=== PATIENT | male | born 1955 | race Caucasian/White ===

== ENCOUNTER 2023-07-04 19:48 | Inpatient (IN) | payer OTHER ==
[~2023-07-04] VITALS: Ht 170.2 cm; Wt 72.6 kg
[2023-07-04 20:04] VITALS: BP 117/76; PULSE 67; RESP 16; TEMP 97.8; O2SAT 99
[2023-07-04] MEDS: MORPHINE SULFATE 4 MG/ML SYR IM ONE (20:53)
[2023-07-04] MEDS: ONDANSETRON 4 MG ODT PO ONE (20:55)
[2023-07-04 21:57] LABS: BASOPHILS # (AUTO) 0.1 K/uL (0.00-0.22); BASOPHILS % (AUTO) 0.7 % (0.0-2.0); EOSINOPHILS # (AUTO) 0.1 K/uL (0-0.4); EOSINOPHILS % (AUTO) 1.2 % (0.0-4.0); HEMATOCRIT 33.8 % (36-52); HEMOGLOBIN 11.7 g/dL (12.0-18.0); LYMPHOCYTES # (AUTO) 1.9 K/uL (2.0-11.5); LYMPHOCYTES % (AUTO) 16.6 % (20.5-51.1); MEAN CORPUSCULAR HEMOGLOBIN 28 pg (27-31); MEAN CORPUSCULAR HGB CONC 35 g/dL (33-37); MEAN CORPUSCULAR VOLUME 81.7 fL (80-94); MONOCYTES # (AUTO) 0.7 K/uL (0.8-1.0); MONOCYTES % (AUTO) 5.9 % (1.7-9.3); NEUTROPHILS # (AUTO) 8.7 K/uL (1.8-7.7); NEUTROPHILS % (AUTO) 75.6 % (42.2-75.2); PLATELET COUNT (AUTO) 231 K/uL (140-450); RED BLOOD CELL COUNT(AUTO) 4.14 MIL/uL (4.20-6.10); RED CELL DISTRIBUTION WIDTH 13.2 % (11.6-13.7); WHITE BLOOD COUNT (AUTO) 11.5 K/uL (4.8-10.8)
[2023-07-04 22:15] LABS: ANION GAP 12.8 (8-16); CALCIUM 9.6 mg/dL (8.5-10.1); CARBON DIOXIDE 29.8 mmol/L (21-32); CREATININE 1.3 mg/dL (0.6-1.3); POTASSIUM 4.6 mmol/L (3.5-5.1)
[2023-07-04] MEDS ORDERED: guaiFENesin DM 200/20 MG-10 ML 10 ML UDC PO PRN (22:35)
[2023-07-04] MEDS ORDERED: DOCUSATE SODIUM 100 MG GELCAP PO PRN (22:35)
[2023-07-04] MEDS ORDERED: ONDANSETRON 4 MG/2 ML VIAL IM/IVP PRN (22:35)
[2023-07-04] MEDS ORDERED: ZOLPIDEM 5 MG TAB PO PRN (22:35)
[2023-07-04] MEDS ORDERED: METF-1253 PO (23:09)
[2023-07-04] MEDS ORDERED: TRAM50TA3 PO (23:09)
[2023-07-04] MEDS ORDERED: CLOP-68 PO (23:09)
[2023-07-04] MEDS ORDERED: METO50TA21 PO (23:09)
[2023-07-04] MEDS ORDERED: INSU100S22 SUBQ (23:09)
[2023-07-04] MEDS ORDERED: SITA100T8 PO (23:09)
[2023-07-04] MEDS ORDERED: HYDR-3298 PO (23:09)
[2023-07-04] MEDS ORDERED: AMLO10TA87 PO (23:09)
[2023-07-04 23:35] VITALS: PULSE 64; RESP 18; O2SAT 96
[2023-07-05] MEDS: NACL 0.9% 1,000 ML IV SCH (00:45)
[2023-07-05 04:00] VITALS: BP 154/81; PULSE 75; RESP 18; TEMP 97.9; O2SAT 96
[2023-07-05 06:22] LABS: BASOPHILS # (AUTO) 0.1 K/uL (0.00-0.22); BASOPHILS % (AUTO) 0.7 % (0.0-2.0); EOSINOPHILS # (AUTO) 0.2 K/uL (0-0.4); HEMATOCRIT 32.4 % (36-52); HEMOGLOBIN 11.2 g/dL (12.0-18.0); LYMPHOCYTES # (AUTO) 2.2 K/uL (2.0-11.5); LYMPHOCYTES % (AUTO) 21.2 % (20.5-51.1); MEAN CORPUSCULAR HEMOGLOBIN 28 pg (27-31); MEAN CORPUSCULAR HGB CONC 35 g/dL (33-37); MEAN CORPUSCULAR VOLUME 82.4 fL (80-94); MONOCYTES # (AUTO) 0.7 K/uL (0.8-1.0); MONOCYTES % (AUTO) 7.1 % (1.7-9.3); PLATELET COUNT (AUTO) 225 K/uL (140-450); RED BLOOD CELL COUNT(AUTO) 3.93 MIL/uL (4.20-6.10); RED CELL DISTRIBUTION WIDTH 12.8 % (11.6-13.7); WHITE BLOOD COUNT (AUTO) 10.2 K/uL (4.8-10.8)
[2023-07-05 06:42] LABS: ALBUMIN 2.5 g/dL (3.4-5.0); CARBON DIOXIDE 30.1 mmol/L (21-32); CREATININE 1.2 mg/dL (0.6-1.3); POTASSIUM 4.1 mmol/L (3.5-5.1); TOTAL BILIRUBIN 0.2 mg/dL (0.0-1.0)
[2023-07-05 06:56] LABS: CALCIUM 9.5 mg/dL (8.5-10.1)
[2023-07-05 08:00] VITALS: BP 150/79; PULSE 18; PULSE 86; RESP 18; RESP 20; TEMP 97.6; O2SAT 96
[2023-07-05] MEDS ORDERED: PHARMACY TO DOSE MC PRN (08:20)
[2023-07-05] MEDS ORDERED: VANCOMYCIN PER PHARMACY MC PRN (08:20)
[2023-07-05] MEDS: PANTOPRAZOLE 40 MG TABEC PO SCH (08:56)
[2023-07-05] MEDS: HYDROcodone/APAP 7.5/325 MG 1 TAB PO PRN (08:57)
[2023-07-05] MEDS: VANCOMYCIN 750 MG in DEXTROSE 5% 250 ML IV SCH (10:00)
[2023-07-05] MEDS ORDERED: DEXTROSE 50% 50 ML SYR IVP PRN (10:45)
[2023-07-05] MEDS: BLOOD GLUCOSE MONITORING 1 DEV DEV FS SCH (12:14)
[2023-07-05] MEDS: INSULIN LISPRO SLIDING SCALE 100 UNITS/ML VIAL SUBQ PRN (12:16)
[2023-07-05] MEDS: PIPERACILLIN/TAZOBACTAM 3.375 GM in DEXTROSE 5% 50 ML IV SCH (12:36)
[2023-07-05 16:00] VITALS: BP 164/97; PULSE 99; RESP 20; TEMP 98.2; O2SAT 100
[2023-07-05] MEDS: MORPHINE SULFATE 2 MG/ML SYR IVP PRN (16:18)
[2023-07-05 18:36] LABS: INR 0.99 (0.8-1.2); PARTIAL THROMBOPLASTIN TIME 32.7 secs (22-35.6); PROTHROMBIN TIME 10.4 secs (10.8-13.4)
[2023-07-05] MEDS: amLODIPine 5 MG TAB PO SCH (18:57)
[2023-07-05] MEDS ORDERED: METOPROLOL 50 MG TAB PO SCH (21:00)
[2023-07-05] MEDS: METOPROLOL 50 MG TAB PO SCH (21:52)
[2023-07-05] MEDS: ACETAMINOPHEN 325 MG TAB PO PRN (21:54)
[2023-07-05 23:56] VITALS: BP 158/92; PULSE 91; RESP 18; TEMP 98.3; O2SAT 98
[2023-07-06 05:23] VITALS: PULSE 91; RESP 18
[2023-07-06 06:42] LABS: BASOPHILS % (AUTO) 0.4 % (0.0-2.0); EOSINOPHILS # (AUTO) 0.1 K/uL (0-0.4); HEMATOCRIT 31.2 % (36-52); HEMOGLOBIN 10.7 g/dL (12.0-18.0); LYMPHOCYTES # (AUTO) 1.5 K/uL (2.0-11.5); LYMPHOCYTES % (AUTO) 15.4 % (20.5-51.1); MEAN CORPUSCULAR HEMOGLOBIN 28 pg (27-31); MEAN CORPUSCULAR HGB CONC 34 g/dL (33-37); MEAN CORPUSCULAR VOLUME 81.3 fL (80-94); MONOCYTES # (AUTO) 0.7 K/uL (0.8-1.0); MONOCYTES % (AUTO) 7.2 % (1.7-9.3); NEUTROPHILS # (AUTO) 7.2 K/uL (1.8-7.7); PLATELET COUNT (AUTO) 222 K/uL (140-450); RED BLOOD CELL COUNT(AUTO) 3.84 MIL/uL (4.20-6.10); RED CELL DISTRIBUTION WIDTH 12.8 % (11.6-13.7); WHITE BLOOD COUNT (AUTO) 9.4 K/uL (4.8-10.8)
[2023-07-06 07:04] LABS: ALBUMIN 2.4 g/dL (3.4-5.0); ANION GAP 11.3 (8-16); CALCIUM 9.2 mg/dL (8.5-10.1); CARBON DIOXIDE 28.6 mmol/L (21-32); CREATININE 1.1 mg/dL (0.6-1.3); POTASSIUM 3.9 mmol/L (3.5-5.1); TOTAL BILIRUBIN 0.2 mg/dL (0.0-1.0); TOTAL PROTEIN, SERUM 7.8 g/dL (6.4-8.2)
[2023-07-06 08:00] VITALS: BP 145/68; PULSE 71; RESP 20; TEMP 97.7; O2SAT 98
[2023-07-06] MEDS: ATORVASTATIN 20 MG TAB PO SCH (08:27)
[2023-07-06] MEDS: ENOXAPARIN 40 MG/0.4 ML SYR SUBQ SCH (08:29)
[2023-07-06] MEDS: KETOROLAC 30 MG/ML VIAL IVP SCH (14:21)
[2023-07-06 16:00] VITALS: BP 157/76; PULSE 73; RESP 20; TEMP 97.8; O2SAT 100
[2023-07-06 20:00] VITALS: PULSE 84; RESP 18; O2SAT 97
[2023-07-06] MEDS: GABAPENTIN 300 MG CAP PO SCH (20:46)
[2023-07-07] VITALS: BP 140/83; PULSE 72; RESP 20; TEMP 98.5; O2SAT 97
[2023-07-07 05:49] LABS: BASOPHILS # (AUTO) 0.1 K/uL (0.00-0.22); BASOPHILS % (AUTO) 0.6 % (0.0-2.0); EOSINOPHILS # (AUTO) 0.1 K/uL (0-0.4); EOSINOPHILS % (AUTO) 0.8 % (0.0-4.0); HEMATOCRIT 31.5 % (36-52); HEMOGLOBIN 10.8 g/dL (12.0-18.0); LYMPHOCYTES # (AUTO) 1.3 K/uL (2.0-11.5); LYMPHOCYTES % (AUTO) 14.9 % (20.5-51.1); MEAN CORPUSCULAR HEMOGLOBIN 28 pg (27-31); MEAN CORPUSCULAR HGB CONC 34 g/dL (33-37); MEAN CORPUSCULAR VOLUME 81.3 fL (80-94); MONOCYTES # (AUTO) 0.6 K/uL (0.8-1.0); MONOCYTES % (AUTO) 6.5 % (1.7-9.3); NEUTROPHILS # (AUTO) 6.8 K/uL (1.8-7.7); NEUTROPHILS % (AUTO) 77.2 % (42.2-75.2); PLATELET COUNT (AUTO) 215 K/uL (140-450); RED BLOOD CELL COUNT(AUTO) 3.88 MIL/uL (4.20-6.10); RED CELL DISTRIBUTION WIDTH 12.7 % (11.6-13.7); WHITE BLOOD COUNT (AUTO) 8.8 K/uL (4.8-10.8)
[2023-07-07 06:28] LABS: ALBUMIN 2.5 g/dL (3.4-5.0); ANION GAP 14.9 (8-16); CALCIUM 9.3 mg/dL (8.5-10.1); CARBON DIOXIDE 25.7 mmol/L (21-32); CREATININE 1.1 mg/dL (0.6-1.3); POTASSIUM 3.6 mmol/L (3.5-5.1); TOTAL BILIRUBIN 0.3 mg/dL (0.0-1.0); TOTAL PROTEIN, SERUM 8.2 g/dL (6.4-8.2)
[2023-07-07 09:32] VITALS: TEMP 97.8
[2023-07-07 09:33] VITALS: BP 169/82; PULSE 86; RESP 18; TEMP 97.8; O2SAT 99
[2023-07-07 09:34] VITALS: PULSE 86; RESP 18; O2SAT 99
[2023-07-07] MEDS: BUPIVACAINE-MPF 0.5% 30 ML VIAL INJ ONE (09:41)
[2023-07-07] MEDS: HYDROGEN PEROXIDE 3% 240 ML BTL TP ONE (09:41)
[2023-07-07] MEDS: fentaNYL citrate 0.05 MG/ML VIAL ONE (09:42)
[2023-07-07] MEDS: MIDAZOLAM 2 MG/2 ML VIAL ONE (09:42)
[2023-07-07] MEDS ORDERED: ONDANSETRON 4 MG/2 ML VIAL ONE (09:50)
[2023-07-07] MEDS ORDERED: SEVOFLURANE 250 ML BTL INH ONE (09:50)
[2023-07-07] MEDS ORDERED: METOCLOPRAMIDE 10 MG/2 ML INJ VIAL ONE (09:50)
[2023-07-07] MEDS: LIDOCAINE MPF 2% 100 MG/5 ML VIAL INJ ONE (10:04)
[2023-07-07] MEDS: KETOROLAC 30 MG/ML VIAL ONE (10:04)
[2023-07-07] MEDS: PROPOFOL 200 MG/20 ML VIAL IV ONE (10:04)
[2023-07-07] MEDS ORDERED: MEPERIDINE 25 MG/ML SYR IVP PRN (10:40)
[2023-07-07] MEDS ORDERED: diphenhydrAMINE 50 MG/ML VIAL IVP PRN (10:40)
[2023-07-07] MEDS ORDERED: ONDANSETRON 4 MG/2 ML VIAL IVP PRN (10:40)
[2023-07-07] MEDS ORDERED: HYDROmorphone 1 MG/ML AMP IVP PRN (10:40)
[2023-07-07] MEDS: NACL 0.9% 1,000 ML IV SCH (11:51)
[2023-07-07 16:00] VITALS: BP 141/67; PULSE 70; RESP 18; TEMP 97.2; O2SAT 99
[2023-07-07 20:00] VITALS: PULSE 82; RESP 18; TEMP 98; O2SAT 99
[2023-07-08] VITALS: BP 128/68; PULSE 64; RESP 18; TEMP 98; O2SAT 98
[2023-07-08 05:43] LABS: BASOPHILS % (AUTO) 0.6 % (0.0-2.0); EOSINOPHILS # (AUTO) 0.1 K/uL (0-0.4); EOSINOPHILS % (AUTO) 1.2 % (0.0-4.0); HEMATOCRIT 29.7 % (36-52); HEMOGLOBIN 10.2 g/dL (12.0-18.0); LYMPHOCYTES # (AUTO) 1.4 K/uL (2.0-11.5); LYMPHOCYTES % (AUTO) 17.1 % (20.5-51.1); MEAN CORPUSCULAR HEMOGLOBIN 28 pg (27-31); MEAN CORPUSCULAR HGB CONC 34 g/dL (33-37); MEAN CORPUSCULAR VOLUME 81.9 fL (80-94); MONOCYTES # (AUTO) 0.5 K/uL (0.8-1.0); MONOCYTES % (AUTO) 6.6 % (1.7-9.3); NEUTROPHILS # (AUTO) 5.9 K/uL (1.8-7.7); NEUTROPHILS % (AUTO) 74.5 % (42.2-75.2); PLATELET COUNT (AUTO) 199 K/uL (140-450); RED BLOOD CELL COUNT(AUTO) 3.63 MIL/uL (4.20-6.10); RED CELL DISTRIBUTION WIDTH 12.6 % (11.6-13.7)
[2023-07-08 07:18] LABS: ALBUMIN 2.3 g/dL (3.4-5.0); ANION GAP 14.3 (8-16); CALCIUM 8.8 mg/dL (8.5-10.1); CARBON DIOXIDE 26.2 mmol/L (21-32); POTASSIUM 3.5 mmol/L (3.5-5.1); TOTAL BILIRUBIN 0.2 mg/dL (0.0-1.0); TOTAL PROTEIN, SERUM 7.6 g/dL (6.4-8.2)
[2023-07-08 08:00] VITALS: BP 127/84; PULSE 80; RESP 18; TEMP 97.8; TEMP 98; O2SAT 100
[2023-07-08 16:00] VITALS: BP 142/63; PULSE 61; RESP 18; TEMP 97.5; O2SAT 99
[2023-07-08 20:00] VITALS: BP 161/76; PULSE 83; RESP 16; TEMP 97.6; O2SAT 98
[2023-07-08] MEDS: GABAPENTIN 300 MG CAP PO SCH (20:08)
[2023-07-09 04:00] VITALS: BP 130/89; PULSE 84; RESP 18; TEMP 97.6; O2SAT 98
[2023-07-09 05:52] LABS: BASOPHILS % (AUTO) 0.6 % (0.0-2.0); EOSINOPHILS # (AUTO) 0.1 K/uL (0-0.4); EOSINOPHILS % (AUTO) 1.4 % (0.0-4.0); HEMATOCRIT 29.4 % (36-52); HEMOGLOBIN 10.2 g/dL (12.0-18.0); LYMPHOCYTES # (AUTO) 1.4 K/uL (2.0-11.5); LYMPHOCYTES % (AUTO) 16.3 % (20.5-51.1); MEAN CORPUSCULAR HEMOGLOBIN 28 pg (27-31); MEAN CORPUSCULAR HGB CONC 35 g/dL (33-37); MEAN CORPUSCULAR VOLUME 81.2 fL (80-94); MONOCYTES # (AUTO) 0.5 K/uL (0.8-1.0); MONOCYTES % (AUTO) 6.6 % (1.7-9.3); NEUTROPHILS # (AUTO) 6.3 K/uL (1.8-7.7); NEUTROPHILS % (AUTO) 75.1 % (42.2-75.2); PLATELET COUNT (AUTO) 200 K/uL (140-450); RED BLOOD CELL COUNT(AUTO) 3.62 MIL/uL (4.20-6.10); WHITE BLOOD COUNT (AUTO) 8.4 K/uL (4.8-10.8)
[2023-07-09 06:14] LABS: ALBUMIN 2.3 g/dL (3.4-5.0); ANION GAP 12.4 (8-16); CALCIUM 8.8 mg/dL (8.5-10.1); POTASSIUM 3.4 mmol/L (3.5-5.1); TOTAL BILIRUBIN 0.3 mg/dL (0.0-1.0); TOTAL PROTEIN, SERUM 7.5 g/dL (6.4-8.2)
[2023-07-09 08:00] VITALS: PULSE 60; RESP 19; TEMP 98; O2SAT 96
[2023-07-09] MEDS ORDERED: GABAPENTIN 300 MG CAP PO SCH (17:00)
[2023-07-09 20:00] VITALS: BP 156/79; PULSE 82; RESP 18; TEMP 97.7; O2SAT 96
[2023-07-10 04:00] VITALS: BP 159/80; PULSE 77; RESP 19; TEMP 98.9; O2SAT 98
[2023-07-10 05:29] LABS: BASOPHILS # (AUTO) 0.1 K/uL (0.00-0.22); BASOPHILS % (AUTO) 0.8 % (0.0-2.0); EOSINOPHILS # (AUTO) 0.2 K/uL (0-0.4); EOSINOPHILS % (AUTO) 1.8 % (0.0-4.0); HEMATOCRIT 28.3 % (36-52); HEMOGLOBIN 9.9 g/dL (12.0-18.0); LYMPHOCYTES # (AUTO) 1.5 K/uL (2.0-11.5); LYMPHOCYTES % (AUTO) 17.2 % (20.5-51.1); MEAN CORPUSCULAR HEMOGLOBIN 29 pg (27-31); MEAN CORPUSCULAR HGB CONC 35 g/dL (33-37); MEAN CORPUSCULAR VOLUME 82.4 fL (80-94); MONOCYTES # (AUTO) 0.5 K/uL (0.8-1.0); NEUTROPHILS # (AUTO) 6.5 K/uL (1.8-7.7); NEUTROPHILS % (AUTO) 74.2 % (42.2-75.2); PLATELET COUNT (AUTO) 186 K/uL (140-450); RED BLOOD CELL COUNT(AUTO) 3.43 MIL/uL (4.20-6.10); RED CELL DISTRIBUTION WIDTH 12.9 % (11.6-13.7); WHITE BLOOD COUNT (AUTO) 8.8 K/uL (4.8-10.8)
[2023-07-10 05:54] LABS: ALBUMIN 2.2 g/dL (3.4-5.0); ANION GAP 9.8 (8-16); CALCIUM 8.9 mg/dL (8.5-10.1); CARBON DIOXIDE 28.6 mmol/L (21-32); CREATININE 0.9 mg/dL (0.6-1.3); POTASSIUM 3.4 mmol/L (3.5-5.1); TOTAL BILIRUBIN 0.2 mg/dL (0.0-1.0); TOTAL PROTEIN, SERUM 7.3 g/dL (6.4-8.2)
[2023-07-10 08:00] VITALS: BP 133/65; PULSE 60; PULSE 64; RESP 18; RESP 19; TEMP 97.7; TEMP 98; O2SAT 96; O2SAT 98
[2023-07-10] MEDS: POTASSIUM CHLORIDE 10 MEQ TABER PO PRN (10:56)
[2023-07-10 20:00] VITALS: BP 167/83; PULSE 82; RESP 18; RESP 19; TEMP 97.7; O2SAT 98
[2023-07-11 04:00] VITALS: BP 162/77; PULSE 77; RESP 20; TEMP 98.5; O2SAT 98
[2023-07-11] MEDS: hydrALAZINE 20 MG/ML VIAL IVP PRN (04:45)
[2023-07-11 05:16] LABS: BASOPHILS % (AUTO) 0.6 % (0.0-2.0); EOSINOPHILS # (AUTO) 0.1 K/uL (0-0.4); EOSINOPHILS % (AUTO) 1.7 % (0.0-4.0); HEMATOCRIT 28.1 % (36-52); HEMOGLOBIN 9.8 g/dL (12.0-18.0); LYMPHOCYTES # (AUTO) 1.8 K/uL (2.0-11.5); LYMPHOCYTES % (AUTO) 21.8 % (20.5-51.1); MEAN CORPUSCULAR HEMOGLOBIN 28 pg (27-31); MEAN CORPUSCULAR HGB CONC 35 g/dL (33-37); MEAN CORPUSCULAR VOLUME 81.4 fL (80-94); MONOCYTES # (AUTO) 0.5 K/uL (0.8-1.0); MONOCYTES % (AUTO) 5.8 % (1.7-9.3); NEUTROPHILS # (AUTO) 5.8 K/uL (1.8-7.7); NEUTROPHILS % (AUTO) 70.1 % (42.2-75.2); PLATELET COUNT (AUTO) 199 K/uL (140-450); RED BLOOD CELL COUNT(AUTO) 3.46 MIL/uL (4.20-6.10); RED CELL DISTRIBUTION WIDTH 12.9 % (11.6-13.7); WHITE BLOOD COUNT (AUTO) 8.3 K/uL (4.8-10.8)
[2023-07-11 05:41] LABS: ALBUMIN 2.1 g/dL (3.4-5.0); CALCIUM 8.8 mg/dL (8.5-10.1); CARBON DIOXIDE 28.5 mmol/L (21-32); CREATININE 0.9 mg/dL (0.6-1.3); POTASSIUM 3.5 mmol/L (3.5-5.1); TOTAL BILIRUBIN 0.2 mg/dL (0.0-1.0); TOTAL PROTEIN, SERUM 7.3 g/dL (6.4-8.2)
[2023-07-11 05:45] VITALS: BP 149/64
[2023-07-11 08:40] VITALS: PULSE 78; RESP 20; O2SAT 99
[2023-07-11 08:44] VITALS: TEMP 97.8
[2023-07-11] MEDS: KETOROLAC 30 MG/ML VIAL IVP SCH (10:01)
[2023-07-11] MEDS ORDERED: PANT40EC56 PO (12:22)
[2023-07-11] MEDS ORDERED: GABA300C55 PO (12:22)
[2023-07-12] MEDS ORDERED: GAUZE TP SCH (13:00)
== END 2023-07-11 14:50 | DRG 240 ==
LOC: MED 19:48 → MMU 22:32 → MTU 22:52
PROVIDERS: ADMIT Student in an Organized Health Care Education/Training Program; ATTEND Student in an Organized Health Care Education/Training Program
PROC: 05HY33Z Insertion of Infusion Device into Upper Vein, Percutaneous Approach (ICD-10-PCS; 2023-07-06)
PROC: 0Y6M0ZB Detachment at Right Foot, Partial 2nd Ray, Open Approach (ICD-10-PCS; 2023-07-07)
PROC: 0Y6M0ZC Detachment at Right Foot, Partial 3rd Ray, Open Approach (ICD-10-PCS; 2023-07-07)
PROC: 0Y6M0ZD Detachment at Right Foot, Partial 4th Ray, Open Approach (ICD-10-PCS; 2023-07-07)
PROC: 0Y6M0ZF Detachment at Right Foot, Partial 5th Ray, Open Approach (ICD-10-PCS; 2023-07-07)
PROC: 0Y6M0Z9 Detachment at Right Foot, Partial 1st Ray, Open Approach (ICD-10-PCS; principal; 2023-07-07 09:00)
DX: E11.52 Type 2 diabetes mellitus with diabetic peripheral angiopathy with gangrene (principal); D84.9 Immunodeficiency, unspecified; I96 Gangrene, not elsewhere classified; L03.115 Cellulitis of right lower limb; M86.8X7 Other osteomyelitis, ankle and foot; E44.1 Mild protein-calorie malnutrition; R64 Cachexia; E11.69 Type 2 diabetes mellitus with other specified complication; I10 Essential (primary) hypertension; E11.621 Type 2 diabetes mellitus with foot ulcer; Z79.899 Other long term (current) drug therapy; Z68.25 Body mass index [BMI] 25.0-25.9, adult
CPT/HCPCS: 36415; 71045; 73620; 73630; 80048; 80053; 80202; 82948; 83036; 83880; 84484; 85025; 85610; 85730; 87070; 87075; 87081; 87205; 88307; 88311; 93005; 93925; 96372; 97112; 97116; 97163-GP; 97530; 99285; J0360; J1644; J1650; J1815; J1885; J2001; J2250; J2270; J2405; J2543; J2704; J2765; J3010; J3370; J3490; J7030; J7060; Q0092; Q0162